=== PATIENT | male | born 1940 | race Caucasian/White ===

== ENCOUNTER 2020-04-08 11:53 | Day surgery (SDC) | payer OTHER ==
[~2020-04-08] VITALS: Ht 177.8 cm; Wt 88.5 kg
[~2020-04-08 11:53] MED LIST: ASPI-404 PO; ATOR40TA52 PO; LISI-275 PO; LITH300C3 PO; MELO1TAB56 PO; METF-370 PO; PANT40TA2 PO
[2020-04-08] MEDS ORDERED: SUCCINYLCHOLINE CHLORIDE 20 MG/ML 10ML VIAL IV ONE (13:40)
[2020-04-08] MEDS ORDERED: LIDOCAINE 1% (LOCAL ANESTH.) PF 5ml SDV ONE (13:40)
[2020-04-08] MEDS ORDERED: MIDAZOLAM HCL 1MG/1ML-2 ML VIAL ONE (13:55)
[2020-04-08] MEDS ORDERED: cefOXitin 2GM/100ML 100 ML IV ONE (14:01)
[2020-04-08] MEDS ORDERED: fentaNYL CITRATE 100 MCG/2 ML VL ONE (14:06)
[2020-04-08] MEDS ORDERED: ETOMIDATE (2MG/ML) 20ML VIAL IV ONE (14:08)
[2020-04-08] MEDS ORDERED: ROCURONIUM 10MG/ML 10ML VIAL IV ONE (14:09)
[2020-04-08] MEDS ORDERED: STERILE WATER 10 ML ONE (14:24)
[2020-04-08] MEDS ORDERED: ePHEDrine SULFATE 50 MG/ML AMP ONE (14:24)
[2020-04-08] MEDS ORDERED: ONDANSETRON HCL 4 MG/2 ML VIAL IV PRN (16:00)
[2020-04-08] MEDS ORDERED: HYDROmorphone HCL 2 MG/ML VL IV PRN (16:00)
[2020-04-08] MEDS ORDERED: NALOXONE HCL 0.4 MG/ML VIAL IV PRN (16:00)
[2020-04-08 17:15] VITALS: BP 123/79
== END 2020-04-08 17:30 | disposition home or self-care (01) ==
LOC: SUR 11:53
PROVIDERS: ATTEND Urology
DX: C61 Malignant neoplasm of prostate (principal); I10 Essential (primary) hypertension; E11.9 Type 2 diabetes mellitus without complications; M19.90 Unspecified osteoarthritis, unspecified site; E78.00 Pure hypercholesterolemia, unspecified; K21.9 Gastro-esophageal reflux disease without esophagitis; G47.33 Obstructive sleep apnea (adult) (pediatric); Z88.5 Allergy status to narcotic agent; Z95.5 Presence of coronary angioplasty implant and graft; Z79.899 Other long term (current) drug therapy; Z98.890 Other specified postprocedural states; Z11.59 Encounter for screening for other viral diseases
CPT/HCPCS: 55873; 82962; C1769; C2618; J0330; J0694; J2250; J3010; U0003